=== PATIENT | male | born 1980 | race Caucasian/White ===

== ENCOUNTER 2017-05-03 21:20 | Emergency (ER) | payer OTHER ==
[2017-05-03 21:42] VITALS: BP 114/66
[2017-05-04] MEDS ORDERED: MOTRIN PO ONE (01:51)
[2017-05-04] MEDS ORDERED: FLEXERIL PO ONE (01:51)
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
== END 2017-05-04 02:10 | disposition home or self-care (01) ==
LOC: ED 21:20
DX: S16.1XXA Strain of muscle, fascia and tendon at neck level, initial encounter (principal); J45.909 Unspecified asthma, uncomplicated; V43.52XA Car driver injured in collision with other type car in traffic accident, initial encounter; Y93.89 Activity, other specified; Y92.89 Other specified places as the place of occurrence of the external cause; Y99.8 Other external cause status
CPT/HCPCS: 99282